=== PATIENT | female | born 1945 | race Caucasian/White ===

== ENCOUNTER 2022-07-30 12:38 | Emergency (ER) | payer MEDICARE, OTHER ==
[~2022-07-30] VITALS: Ht 160 cm; Wt 59.0 kg
[2022-07-30] MEDS ORDERED: HYDROCODONE/APAP 5MG-325MG TAB PO ONE (14:45)
[2022-07-30] MEDS ORDERED: HYDROCODONE/APAP 5MG-325MG TAB ONE (14:49)
[2022-07-30] MEDS ORDERED: Morphine 2mg Syringe 2 MG/ML SYR IV ONE (16:00)
[2022-07-30] MEDS ORDERED: Morphine 4mg INJECTION 4 MG/ML INJ ONE (16:24)
[2022-07-30] MEDS ORDERED: ACETAMINOPHEN-1 EAC3 PO ×3 (16:36→17:26)
[2022-07-30 17:03] VITALS: BP 139/78
== END 2022-07-30 17:11 | disposition home or self-care (01) ==
LOC: FSED 13:12
DX: S32.592A Other specified fracture of left pubis, initial encounter for closed fracture (principal); S22.42XA Multiple fractures of ribs, left side, initial encounter for closed fracture; W18.39XA Other fall on same level, initial encounter; Y92.89 Other specified places as the place of occurrence of the external cause; I10 Essential (primary) hypertension; I25.10 Atherosclerotic heart disease of native coronary artery without angina pectoris; F32.89 Other specified depressive episodes; Z95.810 Presence of automatic (implantable) cardiac defibrillator
CPT/HCPCS: 70450; 71250; 73552 ×2; 74176; 80053; 82553; 84484; 85025; 93005; 99284; J2270

== ENCOUNTER 2022-11-05 09:04 | Inpatient (IN) | payer MEDICARE ==
[~2022-11-05] VITALS: Ht 158.8 cm; Wt 57.2 kg
[~2022-11-05 09:04] MED LIST: ACETAMINOPHEN-1 EAC3 PO; AUGMENTIN 500-1 EACH PO; DICYCLOMINE HCL10 MG PO; METRONIDAZOLE500 MG PO; PREDNISONE20 MG PO; Psyllium PO
[2022-11-05] MEDS ORDERED: KETOROLAC TROMETHAMINE 30 MG/ML VIAL IM STA (11:06)
[2022-11-05] MEDS ORDERED: KETOROLAC TROMETHAMINE 30 MG/ML VIAL ONE (11:21)
[2022-11-05 12:16] LABS: BASOPHILS % 0.1 % (0.0-1.0); EOSINOPHILS % 0.4 % (0.0-6.0); HEMATOCRIT 42.5 % (34.2-44.1); HEMOGLOBIN 13.9 g/dL (12.0-16.0); LYMPHOCYTES # (AUTO) 1.1 (1.0-3.2); LYMPHOCYTES % 16.2 % (18.0-39.1); MEAN CORPUSCULAR HEMOGLOBIN 35.5 pg (28-32); MEAN CORPUSCULAR HGB CONC 32.7 g/dL (31-35); MEAN CORPUSCULAR VOLUME 108.4 fL (81-99); MONOCYTES # (AUTO) 0.4 (0.2-0.8); MONOCYTES % 5.4 % (4.4-11.3); NEUTROPHILS # (AUTO) 5.3 (2.1-6.9); NEUTROPHILS % 77.5 % (38.7-80.0); PLATELET COUNT 176 x10e3/uL (140-360); RED BLOOD COUNT 3.92 x10e6/uL (3.6-5.1); RED CELL DISTRIBUTION WIDTH 13.2 % (11.7-14.4)
[2022-11-05] MEDS ORDERED: ONDANSETRON HCL INJ 2MG/ML 2ML 2 MG/ML VIAL IV PRN (12:30)
[2022-11-05] MEDS ORDERED: ACETAMINOPHEN 325 MG TAB PO PRN (12:30)
[2022-11-05 13:16] LABS: ALBUMIN 3.2 g/dL (3.5-5.0); ANION GAP 16.1 mmol/L (8-16); CALCIUM 8.4 mg/dL (8.4-10.2); CREATININE, SERUM 0.74 mg/dL (0.57-1.11); POTASSIUM 3.1 mmol/L (3.5-5.1)
[2022-11-05 17:46] VITALS: BP 128/67
[2022-11-05] MEDS ORDERED: COREG6.25 MG PO (17:52)
[2022-11-05] MEDS ORDERED: ASPIRIN81 MG PO (17:52)
[2022-11-05] MEDS ORDERED: RAMIPRIL5 MG PO (17:52)
[2022-11-05 18:22] VITALS: BP 128/67
[2022-11-05] MEDS ORDERED: POTASSIUM BICARBONATE/CIT AC 20 MEQ TABLET.EFF PO ONE (19:15)
[2022-11-05] MEDS ORDERED: LORAZEPAM 0.5 MG TAB PO PRN (19:15)
[2022-11-05 20:00] VITALS: BP 155/76
[2022-11-05] MEDS: ASPIRIN 81 MG CHEW TAB PO SCH (20:40)
[2022-11-06] VITALS (8 sets, daily range): BP systolic 115–148; BP diastolic 53–95
[2022-11-06 06:12] LABS: BASOPHILS % 0.5 % (0.0-1.0); EOSINOPHILS # (AUTO) 0.1 (0.0-0.4); EOSINOPHILS % 2.3 % (0.0-6.0); HEMATOCRIT 35.7 % (34.2-44.1); HEMOGLOBIN 12.4 g/dL (12.0-16.0); LYMPHOCYTES # (AUTO) 1.8 (1.0-3.2); LYMPHOCYTES % 39.9 % (18.0-39.1); MEAN CORPUSCULAR HEMOGLOBIN 36.3 pg (28-32); MEAN CORPUSCULAR HGB CONC 34.7 g/dL (31-35); MEAN CORPUSCULAR VOLUME 104.4 fL (81-99); MONOCYTES # (AUTO) 0.3 (0.2-0.8); MONOCYTES % 7.5 % (4.4-11.3); NEUTROPHILS # (AUTO) 2.2 (2.1-6.9); NEUTROPHILS % 49.6 % (38.7-80.0); PLATELET COUNT 132 x10e3/uL (140-360); RED BLOOD COUNT 3.42 x10e6/uL (3.6-5.1); RED CELL DISTRIBUTION WIDTH 14.1 % (11.7-14.4)
[2022-11-06 06:27] LABS: ANION GAP 15.6 mmol/L (8-16); CALCIUM 7.8 mg/dL (8.4-10.2); CREATININE, SERUM 0.69 mg/dL (0.57-1.11)
[2022-11-06 06:35] LABS: POTASSIUM 2.6 mmol/L (3.5-5.1)
[2022-11-06] MEDS: PANTOPRAZOLE SOD 40 MG TABEC PO SCH (07:21)
[2022-11-06] MEDS ORDERED: ONDANSETRON HCL 4 MG ORAL DISINTEGRATING TAB PO PRN (07:30)
[2022-11-06] MEDS ORDERED: POTASSIUM CHLORIDE 10MEQ EA PO ONE ×2 (07:30→11:00)
[2022-11-06] MEDS ORDERED: BUDESONIDE 3 MG CAPCR PO SCH ×2 (09:00→15:00)
[2022-11-06] MEDS: RAMIPRIL 5 MG CAP PO SCH (09:30)
[2022-11-06] MEDS: CARVEDILOL 3.125 MG TAB PO SCH ×2 (09:31→15:51)
[2022-11-06 10:57] LABS: CHOL/HDL RATIO 1.6 (3.0-3.6)
[2022-11-06] MEDS ORDERED: IOPAMIDOL 370 MG/ML 100 ML INFUS..BTL INJ ONE (11:08)
[2022-11-06] MEDS ORDERED: SODIUM CHLORIDE 0.9% 100 ML ONE (11:08)
[2022-11-06 11:18] LABS: FREE THYROXINE INDEX 2.1567 (1.4-3.8); THYROID STIMULATING HORMONE 1.604 uIU/mL (0.350-4.940)
[2022-11-06] MEDS ORDERED: TRAMADOL HCL 50 MG TAB PO PRN (12:15)
[2022-11-06] MEDS ORDERED: MAGNESIUM SULFATE 2GM/50ML 50 ML IV ONE (12:15)
[2022-11-06] MEDS ORDERED: CYANOCOBALAMIN INJ 1,000 MCG/ML VIAL IM ONE (13:00)
[2022-11-06] MEDS: BUDESONIDE 3 MG CAPCR PO SCH ×2 (14:48→21:01)
[2022-11-06] MEDS: ASPIRIN 81 MG CHEW TAB PO SCH (21:01)
[2022-11-07] VITALS (9 sets, daily range): BP systolic 136–152; BP diastolic 42–91
[2022-11-07 05:56] LABS: ALBUMIN 2.5 g/dL (3.5-5.0); ANION GAP 10.2 mmol/L (8-16); CALCIUM 7.9 mg/dL (8.4-10.2); CREATININE, SERUM 0.73 mg/dL (0.57-1.11); POTASSIUM 4.2 mmol/L (3.5-5.1)
[2022-11-07] MEDS: THIAMINE HCL 100 MG TAB PO SCH (08:30)
[2022-11-07] MEDS: MULTIVITAMINS/MINERALS TAB PO SCH (08:30)
[2022-11-07] MEDS: RAMIPRIL 5 MG CAP PO SCH (08:30)
[2022-11-07] MEDS: PANTOPRAZOLE SOD 40 MG TABEC PO SCH (08:30)
[2022-11-07] MEDS: FOLIC ACID 1 MG TAB PO SCH (08:30)
[2022-11-07] MEDS: CARVEDILOL 3.125 MG TAB PO SCH ×2 (08:31→16:22)
[2022-11-07] MEDS: BUDESONIDE 3 MG CAPCR PO SCH ×2 (09:00→16:23)
[2022-11-07] MEDS: ASPIRIN 81 MG CHEW TAB PO SCH (20:34)
[2022-11-08 01:21] VITALS: BP 148/60
[2022-11-08 05:28] VITALS: BP 120/74
[2022-11-08] MEDS: MULTIVITAMINS/MINERALS TAB PO SCH (08:51)
[2022-11-08] MEDS: RAMIPRIL 5 MG CAP PO SCH (08:51)
[2022-11-08] MEDS: BUDESONIDE 3 MG CAPCR PO SCH (08:52)
[2022-11-08] MEDS: THIAMINE HCL 100 MG TAB PO SCH (08:53)
[2022-11-08] MEDS: CARVEDILOL 3.125 MG TAB PO SCH (08:53)
[2022-11-08] MEDS: FOLIC ACID 1 MG TAB PO SCH (08:53)
[2022-11-08] MEDS: PANTOPRAZOLE SOD 40 MG TABEC PO SCH (08:53)
[2022-11-08 08:57] VITALS: BP 165/72
[2022-11-08 09:09] VITALS: BP 165/72
[2022-11-08] MEDS ORDERED: Folic Acid PO (11:06)
[2022-11-08] MEDS ORDERED: B-1100 MG PO (11:06)
== END 2022-11-08 12:09 | disposition home or self-care (01) | DRG 897 ==
LOC: ER 09:14 → ERHOLD 12:01 → INTOOBSV 12:01 → MED/SURG2 17:08 → OBSVTOIN 11-07 09:28
PROVIDERS: ADMIT Internal Medicine; ATTEND Internal Medicine
DX: F10.20 Alcohol dependence, uncomplicated (principal); I50.20 Unspecified systolic (congestive) heart failure; I11.0 Hypertensive heart disease with heart failure; E53.8 Deficiency of other specified B group vitamins; R29.6 Repeated falls; W18.30XA Fall on same level, unspecified, initial encounter; Y92.002 Bathroom of unspecified non-institutional (private) residence as the place of occurrence of the external cause; I25.10 Atherosclerotic heart disease of native coronary artery without angina pectoris; Z95.810 Presence of automatic (implantable) cardiac defibrillator; Z20.822 Contact with and (suspected) exposure to COVID-19; Z90.49 Acquired absence of other specified parts of digestive tract; Z87.891 Personal history of nicotine dependence
CPT/HCPCS: 36415; 70450; 70498; 72125; 76705; 80048; 80053; 80061; 82607; 82746; 83036; 83735; 84436; 84443; 84479; 85025; 86039; 86592; 93306; 94799; 95819; 99252; 99284; G0378; J1885; J3411; J3420; J3475; J7050; Q9967